=== PATIENT | female | born 1945 | race Caucasian/White ===

== ENCOUNTER 2019-10-23 11:46 | Emergency (ER) | payer OTHER ==
[~2019-10-23] VITALS: Ht 157.5 cm; Wt 69.9 kg
[2019-10-23] MEDS ORDERED: HUMULIN 70100 UNIT/2 (12:07)
[2019-10-23] MEDS ORDERED: ASPIR 8181 MG (12:08)
[2019-10-23] MEDS ORDERED: TOPROL XL25 M1 (12:08)
[2019-10-23] MEDS ORDERED: LOSARTAN POTASS50 MG (12:08)
[2019-10-23] MEDS ORDERED: LEVOTHYROXINE25 MC1 (12:08)
[2019-10-23] MEDS ORDERED: AMOX-CLAV 500-1 EACH PO (16:20)
== END 2019-10-23 16:41 | disposition home or self-care (01) ==
LOC: ER 11:46
DX: L03.116 Cellulitis of left lower limb (principal)

== ENCOUNTER 2021-06-30 08:00 | Outpatient (CLI) | payer OTHER ==
[~2021-06-30 08:00] MED LIST: AMOX-CLAV 500-1 EACH PO; ASPIR 8181 MG; HUMULIN 70100 UNIT/2; LEVOTHYROXINE25 MC1; LOSARTAN POTASS50 MG; TOPROL XL25 M1
== END 2021-06-30 08:30 | disposition home or self-care (01) ==
LOC: PPH VACUNA 08:00
PROVIDERS: ATTEND Emergency Medicine Pediatric Emergency Medicine
DX: Z23 Encounter for immunization (principal)